=== PATIENT | male | born 1990 | race Two or more races ===

== ENCOUNTER 2020-11-23 22:52 | Emergency (ER) | payer OTHER ==
[~2020-11-23] VITALS: Ht 185.4 cm; Wt 98.6 kg
[~2020-11-23 22:52] MED LIST: NOCURR
[2020-11-24 00:41] LABS: GLUCOSE,POINT OF CARE 318 MG/DL (70-110)
[2020-11-24 01:00] VITALS: BP 115/60
== END 2020-11-24 01:40 | disposition home or self-care (01) ==
LOC: EMS 23:01
DX: F10.129 Alcohol abuse with intoxication, unspecified (principal); R73.9 Hyperglycemia, unspecified
CPT/HCPCS: 82962; 99282; 99283